=== PATIENT | male | born 2000 | race Caucasian/White ===

== ENCOUNTER 2022-01-14 21:00 | Emergency (ER) | payer OTHER ==
[~2022-01-14] VITALS: Ht 185.4 cm; Wt 113.2 kg
[2022-01-14 21:05] VITALS: TEMP 97.9
[2022-01-14] MEDS ORDERED: FLOVENT DI100 MCG/Ac IH (21:11)
[2022-01-14] MEDS ORDERED: SINGULAIR 110 MG/TAB PO (21:11)
[2022-01-14 23:30] VITALS: BP 136/84; PULSE 75
== END 2022-01-14 23:30 | disposition home or self-care (01) ==
LOC: COL.ER 21:00
DX: T78.1XXA Other adverse food reactions, not elsewhere classified, initial encounter (principal)
CPT/HCPCS: J7512